=== PATIENT | male | born 1950 | race Caucasian/White ===

== ENCOUNTER → 2016-05-24 | Outpatient (CLI) | payer SELFPAY ==
[~2016-05-24] MED LIST: ETOD400T PO; MEPE50TA2 PO
--- OUTSIDE RECORDS SUMMARY | 2016-05-24 08:41 | XMS REPORT ---
Author Author WARD ZAYAS [facility] eClinicalWorks Address Unknown Phone Unavailable Care Team Providers Care Design Engineering Manager Name Role Phone WARD ZAYAS Unavailable Allergies No Known Allergies Problems Problem Type Condition Code Onset Dates Condition Status Assessment Flu vaccine need Z23 Active Medications No Known Medications Procedures Procedure Coding System Code Date SINGLE IMMUNIZATION ADMIN CPT-4 72082 Jan 12, 2015 FLUARIX QUAD (3 & UP)-GSK-2014 CPT-4 10647 Jan 12, 2015 Results No Known Results Immunizations Vaccine Administration Date FLUARIX QUAD (3 & UP)-GSK-2014Jan 12, 2015 Summary Purpose eClinicalWorks Submission
--- NOTE | 2016-05-24 12:15 | Diagnostic Imaging Report ---
PROCEDURE: MRI lumbar spine. TECHNIQUE: Multiplanar, multisequence MRI of the lumbar spine was performed without contrast. INDICATION: Back pain. FINDINGS: There is minimal retrolisthesis of L2 over L3 and L3 over L4. Also minimal retrolisthesis at L1/L2 is seen. There is corresponding mild to moderate disc height loss at these levels and other levels in the lumbar spine. The lower thoracic spine levels T10, T11 and T12 demonstrate anterior bone fusion. The facet joints at T11/T12 appear to be fused as well. The bone marrow demonstrates mild edema around the posterior aspect of L2/L3 disc. The vertebral body heights are preserved. The cauda equina and conus medullaris appear grossly unremarkable. T12/L1: No disc herniation. There is mild facet arthropathy. No spinal canal or foraminal stenosis. L1/L2: There is minimal retrolisthesis. Mild disc bulge is seen and mild facet arthropathy. There is no central canal, lateral recess or foramina stenosis. L2/L3: There is a mild diffuse disc bulge and mild facet hypertrophy. No central canal stenosis. There is mild narrowing of the lateral recess on the left and minimal narrowing of the lateral recess on the right side. The foramina demonstrate moderate stenosis on the left and mild stenosis on the right side. L3/L4: There is mild disc bulge and mild bilateral facet arthropathy. There is no central canal stenosis. There is bilateral mild lateral recess stenosis, more prominent on the right side. There is foraminal stenosis of moderate degree bilaterally, more on the left side. L4/L5: There is a mild disc bulge and bilateral moderate facet arthropathy. There is no central canal stenosis. No lateral recess stenosis. There is mild to moderate foraminal stenosis on the left and minimal stenosis on the right side. L5/S1: There is a minimal disc bulge and mild facet hypertrophy. No central canal stenosis or lateral recess narrowing. The foramina demonstrate bilateral mild to moderate stenosis. IMPRESSION: Lower thoracic spine demonstrates osseous fusion. There is probably degenerative related mild alignment abnormalities as described. Multilevel generally mild to moderate foraminal and lateral recess stenosis. Details as above. Dictated by: Dictated on workstation # [id number]
== END ==
LOC: RAD 08:36
PROVIDERS: ATTEND Family Medicine
DX: M54.41 Lumbago with sciatica, right side (principal); M48.06 Spinal stenosis, lumbar region
CPT/HCPCS: 72148

== ENCOUNTER 2017-10-07 05:40 | Outpatient (CLI) | payer MEDICARE ==
[~2017-10-07] VITALS: Ht 190.5 cm; Wt 96.6 kg
[2017-10-07] MEDS ORDERED: NAPR-1070 PO (10:23)
[2017-10-07] MEDS ORDERED: CYCL5TAB PO (10:23)
[2017-10-07] MEDS ORDERED: AMLO5TAB2 PO (10:23)
[2017-10-07] MEDS ORDERED: ATOR10TA66 PO (10:23)
[2017-10-07] MEDS ORDERED: LOSA50TA36 PO (10:23)
== END 2017-10-07 10:24 ==
LOC: PREOP 05:40
PROVIDERS: ATTEND Surgery
DX: Z01.818 Encounter for other preprocedural examination (principal); Z12.11 Encounter for screening for malignant neoplasm of colon

== ENCOUNTER 2017-10-14 08:23 | Day surgery (SDC) | payer MEDICARE, OTHER ==
[~2017-10-14] VITALS: Ht 190.5 cm; Wt 96.6 kg
[~2017-10-14 08:23] MED LIST changes: +AMLO5TAB2 PO; +ATOR10TA66 PO; +CYCL5TAB PO; +LOSA50TA36 PO; +NAPR-1070 PO
[2017-10-14] MEDS ORDERED: NS IV 500 ML 500 ML IV PRN (08:28)
[2017-10-14] MEDS ORDERED: NS IV 500 ML 500 ML ONE (08:31)
[2017-10-14 08:43] VITALS: BP 146/93
--- NOTE | 2017-10-14 08:53 | Conscious Sedation/ASA ---
Conscious Sedation Pre-Proced Time Reviewed: 08:53 ASA Class: 2 Airway Mallampati Classification: ([place] appropriate class) I. II. III, IV Lungs Heart ASA score ASA 1: a normal healthy patient ASA 2: a patient with a mild systemic disease (mid diabetes, controlled hypertension, obesity ASA 3: a patient with a severe systemic disease that limits activity (angina , COPD, prior Myocardial infarction) ASA 4: a patient with an incapacitating disease that is a constant threat to life (CHF, renal failure) ASA 5: a moribund patient not expected to survive 24 hrs. (ruptured aneurysm) ASA 6: a declared brain patient whose organs are being harvested. For emergent operations, add the letter E after the classification Grade 2 Sedation Plan: Discussed options with patient/fam Note The patient is an appropriate candidate to undergo the planned procedure, sedation, and anesthesia. The patient immediately re-assessed prior to indication. RUBIO GRANGER MD Oct 14, 2017 8:53 am
--- NOTE | 2017-10-14 08:53 | History & Physicial ---
History of Present Illness History of Present Illness Reason for visit/HPI To undergo screening colonoscopy. Date of Admission 10/14/17 Date Seen by Provider: Oct 14, 2017 Time Seen by Provider: 08:50 I consulted on this patient on 10/14/17 08:50 Attending Physician Rubio Granger MD Admitting Physician Lanre Chester MD Consult Allergies and Home Medications Allergies Coded Allergies: No Known Drug Allergies (Unverified , 10/07/17) Home Medications Amlodipine Besylate 5 Mg Tablet, 5 MG PO DAILY, (Reported) Atorvastatin Calcium 10 Mg Tablet, 5 MG PO HS, (Reported) Cyclobenzaprine HCl 5 Mg Tablet, 5 MG PO BID, (Reported) Losartan Potassium 50 Mg Tablet, 50 MG PO DAILY, (Reported) Naproxen Sodium 550 Mg Tablet, 550 MG PO BID, (Reported) Patient Home Medication List Home Medication List Reviewed: Yes Past Rxeruum-Gxxafx-Uijunu Hx Patient Social History Marrital Status: Employed/Student: retired Alcohol Use: Denies Use Recreational Drug Use: No Smoking Status: Former Smoker Former Smoker, Quit: Oct 08, 1979 Type Used: Cigarettes Recent Foreign Travel: No Contact w/other who traveled: No Recent Hopitalizations: No Recent Infectious Disease Expo: No Immunizations Up To Date Date of Pneumonia Vaccine: Apr 01, 2017 Date of Influenza Vaccine: Jan 07, 2017 Seasonal Allergies Seasonal Allergies: No Surgeries Yes Eye Surgery, Orthopedic, Testicular Respiratory No Cardiovascular Yes High Cholesterol, Hypertension Neurological No Reproductive System Hx Reproductive Disorders: No Sexually Transmitted Disease: No HIV/AIDS: No Genitourinary No Gastrointestinal No Musculoskeletal Yes Arthritis, Chronic Back Pain Endocrine History of Endocrine Disorders: No HEENT History of HEENT Disorders: No Loss of Vision: Bilateral Hearing Impairment: Hard of Hearing 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 Type of Treatment: Radiation, Surgical Intervention Blood Transfusions Adverse Reaction to a Blood Tr: No (N/A) Constitutional: no symptoms reported EENTM: no symptoms reported Respiratory: no symptoms reported Cardiovascular: no symptoms reported Gastrointestinal: no symptoms reported Genitourinary: no symptoms reported Musculoskeletal: joint pain Skin: no symptoms reported Psychiatric/Neurological: No Symptoms Reported Physical Exam Vital Signs Vital Signs - First Documented 10/14/17 08:43 Temp 97.3 Pulse 90 Resp 20 B/P (MAP) 146/93 (110) Pulse Ox 93 O2 Delivery Room Air Capillary Refill : Height, Weight, BMI Height: 6'3.00" Weight: 213lbs. 0.0oz. 96.929160sk; 26.6 BMI Method: General Appearance: No Apparent Distress Neck: Normal Inspection Respiratory: Lungs Clear Cardiovascular: Regular Rate, Rhythm Gastrointestinal: Non Tender, Soft Rectal: Deferred Neurologic/Psychiatric: Alert, Oriented x3 Skin: Warm/Dry Assessment/Plan Assessment and Plan Gentleman to undergo screening colonoscopy. Discussed in detail. Admission Diagnosis Admission Status: Other (Outpt Proc) RUBIO GRANGER MD Oct 14, 2017 8:53 am
[2017-10-14] MEDS ORDERED: fentaNYL INJECTION 100 MCG/2 ML AMP ONE (09:13)
[2017-10-14] MEDS ORDERED: MIDAZOLAM 2 MG/2 ML (VERSED) VIAL ONE ×4 (09:13)
[2017-10-14] MEDS: MIDAZOLAM 2 MG/2 ML (VERSED) VIAL IVP PRN ×4 (09:32→09:41)
[2017-10-14] MEDS: fentaNYL INJECTION 100 MCG/2 ML AMP IVP PRN ×2 (09:33→09:36)
--- NOTE | 2017-10-14 09:55 | Endo Procedure Record ---
Endo Procedure Report Date of Procedure Last Colonoscopy: No Oct 14, 2017 Surgeon (s) RUBIO GRANGER MD Post Procedure/Op Diagnosis 1 mm polyp at the distal rectum Sigmoid diverticulosis 1 mm polyp at the proximal transverse colon Procedure Performed Colonoscopy to cecum Hot biopsy polypectomy 2 Description of Procedure Anesthesia Type: Conscious Sedation Specimen(s) collected/removed Polyps Description of the Procedure Indication for the procedure: This gentleman came in for screening colonoscopy. He denied any relevant family history. Informed consent was obtained after reviewing the procedure and complications of post polypectomy bleeding and a low incidence of iatrogenic perforation. Description of the procedure: He was placed in left lateral decubitus position and his vital signs were monitored. Conscious sedation was achieved using Versed and fentanyl. Digital rectal examination was unremarkable. The colonoscope was then introduced in the rectum and advanced all the way up to the cecum. The scope was then withdrawn slowly and the mucosa examined in a systematic fashion. Findings: 1. 1 mm polyp at the distal rectum, that was excised with hot biopsy forceps 2. Sigmoid diverticulosis 3. 1 mm polyp at the proximal transverse colon, that was managed in a similar fashion. He tolerated the procedure well and was taken back to the nursing area in a stable condition. Impression: Screening colonoscopy. Small polyps excised. Recommend repeating in 2 years. Copy Copies To 1: LORETA LUNA MD, XAVIER M MD Oct 14, 2017 9:55 am
--- NOTE | 2017-10-14 09:56 | Discharge Inst-Simple/Standard ---
Discharge Inst-Standard Discharge Medications New, Converted or Re-Newed RX: Other Patient Instructions/Follow Up Plan of Care/Instructions/FU: Repeat colonoscopy in 2 years Activity as Tolerated: Yes Discharge Diet: No Restrictions RUBIO GRANGER MD Oct 14, 2017 9:56 am
[2017-10-14 10:15] VITALS: BP 128/82
[2017-10-14 10:41] VITALS: BP 135/87
[2017-10-14 10:42] VITALS: BP 135/87
== END 2017-10-14 10:50 | disposition home or self-care (01) ==
LOC: ENDO 08:23
PROVIDERS: ATTEND Surgery
DX: Z12.11 Encounter for screening for malignant neoplasm of colon (principal); K62.1 Rectal polyp; D12.3 Benign neoplasm of transverse colon; K57.30 Diverticulosis of large intestine without perforation or abscess without bleeding; Z87.891 Personal history of nicotine dependence; E78.00 Pure hypercholesterolemia, unspecified; I10 Essential (primary) hypertension; Z85.47 Personal history of malignant neoplasm of testis; Z92.3 Personal history of irradiation

== ENCOUNTER 2019-08-20 09:05 | Outpatient (RCR) | payer OTHER ==
[~2019-08-20] VITALS: Ht 188 cm; Wt 106.4 kg
[~2019-08-20 09:05] MED LIST changes: -AMLO5TAB2 PO; +AMLO5TAB9 PO; -LOSA50TA36 PO; +LOSA50TA63 PO
== END 2019-08-20 15:38 | disposition home or self-care (01) ==
LOC: PREOP 09:05
PROVIDERS: ATTEND Surgery
DX: Z01.818 Encounter for other preprocedural examination (principal); Z11.59 Encounter for screening for other viral diseases
CPT/HCPCS: 87635

== ENCOUNTER 2021-04-03 08:55 | Outpatient (CLI) | payer MEDICARE ==
[~2021-04-03] VITALS: Ht 190.5 cm; Wt 104.8 kg
[~2021-04-03 08:55] MED LIST changes: +AMLO-250 PO; -AMLO5TAB9 PO
[2021-04-03 09:10] VITALS: BP 151/75
[2021-04-03] MEDS ORDERED: EPINEPHrine INJECTION 1 MG/ML AMP IM PRN (09:15)
[2021-04-03] MEDS ORDERED: diphenhydrAMINE 50 MG/ML INJ (BENADRYL) IV PRN (09:15)
[2021-04-03] MEDS ORDERED: ONDANSETRON 4 MG/2 ML (SDV) Z0FRAN IV PRN (09:15)
[2021-04-03] MEDS ORDERED: ACETAMINOPHEN 500 MG TAB (TYLENOL) PO PRN (09:15)
[2021-04-03] MEDS ORDERED: SOTROVIMAB 500 MG/NS 100 ML IVPB IV ONE ×2 (09:15)
[2021-04-03 10:25] VITALS: BP 128/74
== END 2021-04-03 10:35 ==
LOC: INFUSION 08:55
PROVIDERS: ATTEND Nurse Practitioner Family
DX: U07.1 COVID-19 (principal)

== ENCOUNTER 2022-07-11 05:57 | Outpatient (CLI) | payer OTHER ==
[~2022-07-11] VITALS: Ht 190.5 cm; Wt 108.3 kg
[2022-07-12] MEDS ORDERED: OMEG100032 PO (08:54)
[2022-07-12] MEDS ORDERED: NAPR-1070 PO (08:54)
[2022-07-12] MEDS ORDERED: ATOR20TA66 PO (08:54)
[2022-07-12] MEDS ORDERED: CYCL10TA25 PO (08:54)
== END 2022-07-12 08:57 | disposition home or self-care (01) ==
LOC: PREOP 05:57
PROVIDERS: ATTEND Surgery
DX: Z01.818 Encounter for other preprocedural examination (principal)

== ENCOUNTER 2022-07-20 13:15 | Day surgery (SDC) | payer MEDICARE, OTHER ==
[~2022-07-20] VITALS: Ht 190.5 cm; Wt 108.3 kg
[~2022-07-20 13:15] MED LIST changes: +ATOR20TA66 PO; +CYCL10TA25 PO; +OMEG100032 PO
[2022-07-20] MEDS ORDERED: LACTATED RINGERS 1,000 ML IV STA (13:19)
--- NOTE | 2022-07-20 13:36 | Progress Note-Pre Operative ---
Pre-Operative Progress Note Date H&P Reviewed: Jul 20, 2022 Time H&P Reviewed: 13:35 History & Physical: H&P Reviewed, Patient Examed, No changes noted Pre-Operative Diagnosis: hx polys MARJORIE ASHRAF DO Jul 20, 2022 13:36
[2022-07-20 13:38] VITALS: BP 165/85
[2022-07-20] MEDS ORDERED: PROPOFOL INJECTION 50 ML IV ONE (14:29)
[2022-07-20] MEDS ORDERED: MIDAZOLAM 2 MG/2 ML (VERSED) VIAL ONE (14:30)
[2022-07-20 15:00] VITALS: BP 127/76
--- NOTE | 2022-07-20 15:02 | Anesthesia-General Post-Op ---
MAC Patient Condition Mental Status/LOC: Same as Preop Cardiovascular: Satisfactory Nausea/Vomiting: Absent Respiratory: Satisfactory Pain: Controlled Complications: Absent Post Op Complications Complications None Follow Up Care/Instructions Patient Instructions None needed. Anesthesiology Discharge Order Discharge Order Patient is doing well, no complaints, stable vital signs, no apparent adverse anesthesia problems. No complications reported per nursing. AMBROSIO DAVIS CRNA Jul 20, 2022 15:02
[2022-07-20 15:05] VITALS: BP 141/78
--- NOTE | 2022-07-20 15:09 | Discharge Inst-Simple/Standard ---
Discharge Inst-Standard Patient Instructions/Follow Up Plan of Care/Instructions/FU: 2 weeks Vj Activity as Tolerated: Yes Discharge Diet: Regular Diet (high fiber) MARJORIE ASHRAF DO Jul 20, 2022 15:09
[2022-07-20 15:10] VITALS: BP 141/78
--- NOTE | 2022-07-20 15:10 | Progress Note-Post Operative ---
Post-Operative Progess Note Surgeon (s)/Materials Supervisor (s) Surgeon MARJORIE ASHRAF DO Materials Supervisor: na Pre-Operative Diagnosis hx polys Post-Operative Diagnosis polyps, diverticulosis Procedure & Operative Findings Date of Procedure 07/20/22 Procedure Performed/Findings colonoscopy c hot bx polypectomy x 3 Anesthesia Type per design director Estimated Blood Loss Estimated blood loss (mL): none Specimens/Packing Specimens Removed colon polyps MARJORIE ASHRAF DO Jul 20, 2022 15:10
[2022-07-20 15:23] VITALS: BP 141/78
--- NOTE | 2022-07-20 21:18 | OPERATIVE REPORT ---
DATE OF SERVICE: 07/20/2022 PREOPERATIVE DIAGNOSIS: History of polyps. POSTOPERATIVE DIAGNOSES: Polyps, diverticulosis. PROCEDURE: Colonoscopy with hot biopsy polypectomy x3. SURGEON: Marjorie Zabala DO ANESTHESIA: Per BODY SHOP MANAGER. ESTIMATED BLOOD LOSS: None. COMPLICATIONS: None. INDICATIONS: The patient is a 71-year-old male with history of polyps. He understands risks and benefits of procedure and wished to proceed. Consent was signed in chart. DESCRIPTION OF PROCEDURE: The patient was taken to endoscopy suite, placed in left lateral recumbent position. Timeout was performed. Digital rectal exam was performed. No palpable polyps, masses or ulcerations. Scope was inserted in the rectum, advanced all the way to the cecum with minimal difficulty. Prep was adequate irrigation and suction, slight amount of stool still in areas. No polyps, masses or ulcerations in the cecum, ascending, transverse and descending colon. In the sigmoid colon, small polyp, which hot biopsy polypectomy was performed. Scope was then continuously retracted back in the rectum where another 2 polyps were present, which hot biopsy polypectomy was performed. Scope was retroflexed with noting no other pathology. Scope was returned to its normal position, slowly withdrawn until completely removed. The patient tolerated the procedure well without complications, taken to recovery room in stable condition. RECOMMENDATIONS: Hyperbaric fiber diet due to diverticulosis. Repeat colonoscopy in 5 years. Any issues before that, be seen at that time. Job ID: [id number] DocumentID: [id number] Dictated Date: 07/20/2022 15:11:58 Flexographic Press Helper Date: 07/20/2022 21:17:00 Dictated By: MARJORIE ZABALA DO
== END 2022-07-20 15:33 | disposition home or self-care (01) ==
LOC: ENDO 13:15
PROVIDERS: ATTEND Surgery
DX: Z12.11 Encounter for screening for malignant neoplasm of colon (principal); K63.5 Polyp of colon; K62.1 Rectal polyp; K57.30 Diverticulosis of large intestine without perforation or abscess without bleeding; Z87.891 Personal history of nicotine dependence; E66.9 Obesity, unspecified; Z68.29 Body mass index [BMI] 29.0-29.9, adult